=== PATIENT | male | born 1955 | race Caucasian/White ===

== ENCOUNTER 2017-08-29 05:47 | Inpatient (IN) | payer OTHER ==
[2017-08-21 14:06] VITALS: BMI 30.9
[~2017-08-29 05:47] MED LIST: CELECOXIB 200 MG CAPSULE PO ONE; GABAPENTIN 300 MG CAPSULE (FP) PO ONE; PANTOPRAZOLE 40 MG TABLET (FP) PO ONE
[2017-08-29] MEDS ORDERED: PANTOPRAZOLE 40 MG TABLET (FP) ONE (06:59)
[2017-08-29] MEDS ORDERED: GABAPENTIN 300 MG CAPSULE (FP) ONE (06:59)
[2017-08-29] MEDS ORDERED: CELECOXIB 200 MG CAPSULE ONE (07:00)
[2017-08-29] MEDS ORDERED: TRANEXAMIC ACID 1000 MG/10 ML VIAL ONE (07:16)
--- NOTE | 2017-08-29 07:16 | HP ---
Admitting History and Physical - Admission Chief Complaint: left hip osteoarthritis x years History of Present Illness: 61 year old male presents regarding his left hip. Longstanding history of left hip osteoarthritis. Patient complains of pain, limited ROM, difficulty ambulating and difficulty with ADLs such as putting on his socks and shoes. Patient has failed conservative treatment measures including PO medication, activity modification, injections and exercise program. Patient roderick like to proceed with surgical intervention, left total hip arthroplasty, MAKOplasty. History Source: Patient - Past Medical History Gastrointestinal: Yes: GERD Musculoskeletal: Yes: Osteoarthritis - Past Surgical History Additional Past Surgical History: See written history & physical. - Smoking History Smoking history: Never smoked Have you smoked in the past 12 months: No - Alcohol/Substance Use Hx Alcohol Use: No Home Medications - Allergies Allergies/Adverse Reactions: Allergies Allergy/AdvReac Type Severity Reaction Status Date / Time No Known Drug Allergies Allergy Verified 08/21/17 14:02 - Home Medications Home Medications: Ambulatory Orders Omeprazole 10 mg PO ASDIR PRN 05/30/16 Aspirin [ASA -] 81 mg PO DAILY 08/21/17 Review of Systems - Review of Systems Musculoskeletal: reports: Decreased ROM (left hip), Joint Pain (left hip) Physical Examination Constitutional: Yes: Well Nourished, No Distress Eyes: Yes: Conjunctiva Clear HENT: Yes: Atraumatic, Normocephalic Neck: Yes: Supple Cardiovascular: Yes: Regular Rate and Rhythm Respiratory: Yes: Regular Gastrointestinal: Yes: Soft ...Rectal Exam: Yes: Deferred Musculoskeletal: Yes: Joint Stiffness (left hip) Assessment/Plan 61 year old male presents regarding his left hip. Longstanding history of left hip osteoarthritis. Patient complains of pain, limited ROM, difficulty ambulating and difficulty with ADLs such as putting on his socks and shoes. Patient has failed conservative treatment measures including PO medication, activity modification, injections and exercise program. Patient roderick like to proceed with surgical intervention, left total hip arthroplasty, MAKOplasty. Pros, cons, risks, benefits and alternatives of a left total hip arthroplasty, MAKOplasty Were discussed with the patient at length. Patient confirms his understanding and consents to proceed with a left total hip arthroplasty, MAKOplasty.
[2017-08-29] MEDS ORDERED: VANCOMYCIN 1,000 MG VIAL (RESTRICTED TO ID ONLY) ONE (07:17)
[2017-08-29] MEDS ORDERED: ceFAZolin SODIUM 1 GM VIAL ONE (07:17)
[2017-08-29] MEDS ORDERED: ROPIVICAINE 0.2%/MORPH PF/KETOROLAC - 51ML DISP.SYRINGE IA ONE ×4 (07:19→11:34)
[2017-08-29] MEDS ORDERED: MIDAZOLAM HCL 2 MG/2 ML SINGLE DOSE VIAL ONE (07:21)
[2017-08-29] MEDS ORDERED: LIDOCAINE 1% P/F 10 MG/ML VIAL ONE (07:21)
[2017-08-29] MEDS ORDERED: DEXAMETHASONE SOD PHOSPHATE/PF 10 MG/ML SDV ONE (07:21)
[2017-08-29] MEDS ORDERED: BUPIVACAINE HCL/PF (5 MG/ML) 30 ML VIAL IJ ONE (07:22)
[2017-08-29] MEDS ORDERED: TRANEXAMIC ACID 1000 MG/10 ML VIAL IVPUSH ONE ×3 (08:00→11:34)
[2017-08-29] MEDS ORDERED: CEFAZOLIN 2 GM in DEXTROSE 5%-WATER - 50 ML IVPB ONE (08:00)
[2017-08-29] MEDS ORDERED: VANCOMYCIN 1,000 MG VIAL (RESTRICTED TO ID ONLY) IVPB ONE ×2 (10:10→11:34)
[2017-08-29] MEDS ORDERED: ONDANSETRON 4 MG/2 ML VIAL IVPUSH PRN ×2 (11:11→13:00)
[2017-08-29] MEDS ORDERED: oxyCODONE HCL 5 MG TABLET PO PRN ×3 (11:11→14:08)
--- NOTE | 2017-08-29 12:59 | OP ---
Operative Note - Note: Operative Date: 08/29/17 Pre-Operative Diagnosis: Left hip OA Operation: Left MAKOplasty LEO Post-Operative Diagnosis: Same as Pre-op Surgeon: Ifeanyi South Rebrander: Yeni Fajardo Anesthesia: Spinal Estimated Blood Loss (mls): 300
[2017-08-29] MEDS ORDERED: LACTATED RINGERS SOLUTION 1,000 ML IV SCH (13:00)
[2017-08-29] MEDS ORDERED: MAGNESIUM HYDROX 2400MG/30ML ORAL SUSPENSION 30 ML CUP PO PRN (13:00)
[2017-08-29] MEDS ORDERED: MAG HYDROX/AL HYDROX/SIMETH 30 ML UNIT-DOSE CUP PO PRN (13:00)
[2017-08-29] MEDS ORDERED: ACETAMINOPHEN 1000 MG/100 ML VIAL (NON FORMULARY) IVPB ONE ×2 (13:03→13:15)
[2017-08-29] MEDS ORDERED: oxyCODONE HCL 10 MG SUSTAINED ACTING TABLET PO ONE ×2 (13:03→13:30)
--- NOTE | 2017-08-29 13:12 | SPEC ---
DATE OF OPERATION: 08/29/2017 PREOPERATIVE DIAGNOSIS: Left hip osteoarthritis. POSTOPERATIVE DIAGNOSIS: Left hip osteoarthritis. PROCEDURE: Left total hip replacement with MAKOplasty robotic navigation. ATTENDING: Griselda Macdonald MD DEPOSIT REFUND CLERK: RICKY Jacob ANESTHESIA: Spinal plus sedation. ESTIMATED BLOOD LOSS: 300 mL. COMPLICATIONS: None. SPECIMENS: Resected bone was sent for pathology analysis. DISPOSITION: The patient was transferred to the PACU in stable condition. IMPLANTS USED: [place] Accolade II size 6 femoral component, Jossue Tritanum 52-mm acetabular component with 25-mm and 20-mm acetabular screws, MDM bipolar head ball and liner with inner 22+3-mm head ball. INDICATIONS: This is a 61-year-old male who presents to the office complaining of severe bilateral hip pain. The left is more painful than the right. He was seen and examined by Dr. Macdonald and diagnosed with severe left hip osteoarthritis. The patient was initially treated with nonoperative management such as medications, injections, and physical therapy but failed conservative treatment. He was then indicated for a left total hip replacement with MAKOplasty robotic navigation. The risks, benefits, and alternatives to the surgery were explained to the patient in great detail, and he elected to proceed with the surgery. DESCRIPTION OF PROCEDURE: On the day of surgery, the patient was taken to the operating room and placed on the OR table. Spinal anesthesia was administered by the anesthesiologist. The patient was then positioned in the lateral decubitus position on the table and all bony prominences were padded. An axillary roll was placed. The operative hip was then prepped and draped in the usual sterile fashion and intravenous antibiotics were given for infection prophylaxis. A surgical time-out was then performed with the team, and the patients identity, procedure, side, availability of implants, and the administration of antibiotics were confirmed. An approximately 15-cm longitudinal incision was made through the skin centered on the greater trochanter of the hip. This dissection was carried down through the subcutaneous tissues to the deep fascia. This fascia was then incised and a Cobra was placed around the inferior femoral neck. Electrocautery was used to reflect the anterior 40% of the gluteus medius and minimus starting at the musculotendinous junction and leaving a cuff for closure. This was reflected to reveal the capsule of the hip joint. An anterior capsulectomy was performed and the femoral head and neck were visualized. Grade 4 changes were noted diffusely throughout the joint. At this point, three small stab incisions were made superior to the main incision along the iliac crest. Three self-drilling Steinmann pins were then placed and the Blurtt pelvic array was attached. Reference points on the limb were then entered into the robotic device and the limb length deficiency, offset, and femoral neck resection level were then calculated by the software. The hip was then dislocated with traction and external rotation. An oscillating saw was used to make the femoral neck cut at the level previously templated, and the femoral head was removed. Attention was then turned to the acetabulum. Retractors were then placed around the acetabulum and the labrum was removed. An acetabular checkpoint pin and the Blurtt software were used to register the contours of the acetabulum. The acetabulum was then reamed in a single stage to the preoperatively templated size using the Blurtt robotic arm. The appropriately sized cup was then impacted and had solid fixation as well as the preset inclination and version of 40 and 20 degrees, respectively. A polyethylene liner was then placed in the cup. Attention was then turned back to the femur, which was externally rotated for improved visualization. A femoral neck elevator was used to present the femoral neck cut, a box osteotome was used to enter the femoral canal, and a canal finder was used to go down the femoral shaft. The Keaton broaches were used sequentially until the optimal scratch fit was achieved. This correlated with the preoperatively templated size. From here, several different offset head and neck configurations were tested until excellent stability and length were obtained. These measurements were quantified using the Blurtt software. All trial components were then removed, the femur was copiously irrigated, and the final components were placed. Leg length and stability were checked again and found to be excellent. After final implants were placed, a 3-minute dilute Betadine lavage was performed. Following this, the wound was irrigated with normal saline via pulsatile lavage, and wound closure was begun. Wound closure was started by repairing the abductor muscles with a no. 2 FiberWire stitch in a Krackow configuration passed through bone tunnels in the greater trochanter and tied over a bony bridge. This repair was then reinforced with a 0 V-Loc 180 barbed suture. Next, no. 1 Polysorb and 0 V-Loc 180 were used to close the fascia. The deep subcutaneous tissue was closed with no. 1 Polysorb sutures, and 2-0 Polysorb was used for the superficial subcutaneous tissue. The skin was closed using both 3-0 V-Loc 90 suture in a running subcuticular fashion and SwiftSet skin adhesive. The Keaton array and pins were removed from the iliac crest and the stab incision sites were irrigated and closed with 4-0 Polysorb sutures and SwiftSet skin adhesive. Once this was completed, a sterile dressing was applied. The patient was then awakened and taken to the PACU in stable condition. GRISELDA MACDONALD M.D. [id number]
[2017-08-29] MEDS ORDERED: KETOROLAC TROMETHAMINE 30 MG/1 ML VIAL IVPUSH ONE (13:28)
[2017-08-29] MEDS ORDERED: traMADol HCL 50 MG TABLET PO ONE (13:30)
[2017-08-29] MEDS: KETOROLAC TROMETHAMINE 30 MG/1 ML VIAL IVPUSH SCH ×2 (14:00→19:46)
[2017-08-29] MEDS: traMADol HCL 50 MG TABLET PO SCH ×2 (15:10→19:46)
[2017-08-29] MEDS: oxyCODONE HCL 5 MG TABLET PO PRN ×2 (16:10→22:12)
[2017-08-29] MEDS: CEFAZOLIN 2 GM/D5W 2 GM/50 ML ML IVPB SCH ×2 (16:20→23:52)
[2017-08-29] MEDS: ACETAMINOPHEN 325 MG TABLET (FP) PO SCH (19:45)
[2017-08-29] MEDS ORDERED: DEXAMETHASONE SOD PHOSPHATE 10 MG/1 ML VIAL IVPB ONE (20:00)
[2017-08-29] MEDS: SENNOSIDES/DOCUSATE COMBO (SENNA PLUS) TABLET (UD) PO SCH (21:47)
[2017-08-29] MEDS: ASCORBIC ACID 500 MG TABLET (FP) PO SCH (21:48)
[2017-08-29] MEDS: oxyCODONE HCL 10 MG SUSTAINED ACTING TABLET PO SCH (21:48)
[2017-08-29] MEDS: GABAPENTIN 300 MG CAPSULE (FP) PO SCH (21:48)
[2017-08-29] MEDS: CELECOXIB 200 MG CAPSULE PO SCH (21:48)
[2017-08-30] MEDS: oxyCODONE HCL 5 MG TABLET PO PRN ×3 (01:00→15:03)
[2017-08-30] MEDS: ACETAMINOPHEN 325 MG TABLET (FP) PO SCH ×4 (01:01→20:25)
[2017-08-30] MEDS: traMADol HCL 50 MG TABLET PO SCH ×4 (01:01→20:25)
[2017-08-30] MEDS: KETOROLAC TROMETHAMINE 30 MG/1 ML VIAL IVPUSH SCH ×2 (01:02→08:31)
[2017-08-30] MEDS ORDERED: diphenhydrAMINE HCL 25 MG CAPSULE (FP) PO ONE (06:37)
[2017-08-30] MEDS: LACTATED RINGERS SOLUTION 1,000 ML IV SCH ×2 (07:51→12:43)
--- NOTE | 2017-08-30 08:13 | SURG ---
Surgery Insurance Processing Clerk Note Insurance Processing Clerk: Yeni Fajardo PA-C Date of Service: 08/29/17 Diagnosis: Left hip OA Procedure: Left MAKOplasty LEO I was present for the entirety of the operative procedure. For further detail, please refer to operative report. Visit type - Case Type Case Type: Scheduled Admission - Emergency Emergency Visit: No - New patient This patient is new to me today: Yes Date on this admission: 08/29/17
[2017-08-30] MEDS: ASPIRIN 325 MG TABLET PO SCH (08:33)
[2017-08-30 08:40] LABS: HEMOGLOBIN 13.5 GM/dl (11.7-16.9); MCH 27.5 pg (25.7-33.7); MEAN CELL VOLUME 83.4 fl (80-96); MEAN PLT VOLUME 10.1 fl (7.5-11.1); PLATELET COUNT 224 K/MM3 (134-434); RBC 4.91 M/mm3 (4.00-5.60); RDW 13.3 % (11.9-15.9); WHITE BLOOD COUNT 17.3 K/mm3 (4.0-10.8)
--- NOTE | 2017-08-30 09:11 | PN ---
Progress Note, Physician Chief Complaint: Pt. pain controlled, no anesthesia complaints. - Current Medication List Current Medications: Active Medications Acetaminophen (Tylenol -) 650 mg PO Q6H [facility] Stop: 09/01/17 19:59 Last Admin: 08/30/17 08:33 Dose: 650 mg Al Hydroxide/Mg Hydroxide (Mylanta Oral Suspension -) 30 ml PO Q4H PRN PRN Reason: DYSPEPSIA Last Admin: 08/30/17 00:02 Dose: 30 ml Ascorbic Acid (Vitamin C -) 500 mg PO BID [facility] Last Admin: 08/29/17 21:48 Dose: 500 mg Aspirin (Asa -) 325 mg PO DAILY@0800 [facility] Last Admin: 08/30/17 08:33 Dose: 325 mg Celecoxib (Celebrex -) 200 mg PO BID [facility] Last Admin: 08/29/17 21:48 Dose: 200 mg Gabapentin (Neurontin -) 300 mg PO BID [facility] Stop: 09/01/17 21:59 Last Admin: 08/29/17 21:48 Dose: 300 mg Lactated Ringer's (Lactated Ringers Solution) 1,000 mls @ 125 mls/hr IV ASDIR [facility] Last Admin: 08/30/17 07:51 Dose: Not Given Magnesium Hydroxide (Milk Of Magnesia -) 30 ml PO PRN PRN PRN Reason: CONSTIPATION Multivitamins/Minerals/Vitamin C (Tab-A-Vit -) 1 tab PO DAILY [facility] Ondansetron HCl (Zofran Injection) 4 mg IVPUSH Q6H PRN PRN Reason: NAUSEA Oxycodone HCl (Oxycontin -) 10 mg PO BID [facility] Stop: 09/01/17 11:12 Last Admin: 08/29/17 21:48 Dose: 10 mg Oxycodone HCl (Roxicodone -) 5 mg PO Q3H PRN PRN Reason: PAIN LEVEL 1-5 Oxycodone HCl (Roxicodone -) 10 mg PO Q3H PRN PRN Reason: PAIN LEVEL 6-10 Last Admin: 08/30/17 06:53 Dose: 10 mg Pantoprazole Sodium (Protonix -) 40 mg PO DAILY [facility] Senna/Docusate Sodium (Pericolace -) 2 tablet PO BID [facility] Last Admin: 08/29/17 21:47 Dose: 2 tablet Tramadol HCl (Ultram -) 50 mg PO Q6H [facility] Last Admin: 08/30/17 08:34 Dose: 50 mg - Objective Vital Signs: Vital Signs Temperature 98.4 F 08/30/17 06:00 Pulse Rate 72 08/30/17 06:00 Respiratory Rate 18 08/30/17 06:00 Blood Pressure 130/82 08/30/17 06:00 O2 Sat by Pulse Oximetry (%) 96 08/30/17 08:21 Constitutional: Yes: Well Nourished, No Distress, Calm Musculoskeletal: Yes: WNL Neurological: Yes: WNL, Alert, Oriented ...Motor Strength: WNL Labs: CBC, BMP 08/30/17 07:15 Assessment/Plan POD#1 s/p Left Total hip replacement under spinal with paravertebral block. Doing well D/C from anesthesia care.
[2017-08-30 09:16] LABS: ANION GAP 6 (8-16); BLOOD UREA NITROGEN 32 mg/dl (7-18); CALCIUM 8.7 mg/dl (8.4-10.2); CHLORIDE 102 mmol/L (98-107); CO2 24 mmol/L (22-28); CREATININE 1.2 mg/dl (0.6-1.3); GLUCOSE,RANDOM 170 mg/dl (74-106); POTASSIUM 4.5 mmol/L (3.5-5.1); SODIUM 132 mmol/L (136-145)
[2017-08-30] MEDS: ASCORBIC ACID 500 MG TABLET (FP) PO SCH ×2 (09:35→21:53)
[2017-08-30] MEDS: CELECOXIB 200 MG CAPSULE PO SCH ×2 (09:35→21:53)
[2017-08-30] MEDS: GABAPENTIN 300 MG CAPSULE (FP) PO SCH ×2 (09:36→21:53)
[2017-08-30] MEDS: SENNOSIDES/DOCUSATE COMBO (SENNA PLUS) TABLET (UD) PO SCH ×2 (09:36→21:53)
[2017-08-30] MEDS: MULTIVITAMINS (DAILY MVI) TABLET (FP) PO SCH (09:37)
[2017-08-30] MEDS: PANTOPRAZOLE 40 MG TABLET (FP) PO SCH (09:37)
[2017-08-30] MEDS: oxyCODONE HCL 10 MG SUSTAINED ACTING TABLET PO SCH ×2 (09:38→21:53)
--- NOTE | 2017-08-30 23:47 | PN ---
Progress Note (short form) - Note Progress Note: Pt seen and examined. Doing well. Walked 800+ feet. AVSS Selected Entries 08/30/17 08/30/17 08/30/17 08:21 14:10 21:00 Temperature 98.7 F Respiratory 18 18 Rate Blood Pressure 132/81 O2 Sat by Pulse 96 Oximetry (%) Fraction of 94 Inspired Oxygen (FIO2) Laboratory Tests 08/30/17 08/30/17 07:15 07:15 WBC 17.3 H D Hgb 13.5 Hct 41.0 Plt Count 224 Sodium 132 L Potassium 4.5 Chloride 102 Carbon Dioxide 24 Anion Gap 6 L BUN 32 H D Creatinine 1.2 Random Glucose 170 H D Calcium 8.7 Gen: NAD LLE: c/d/i, NVID A/P 61yo male POD#1 s/p L LEO 1. Doing well 2. D/C in AM after PT. F/U in office in 10-14 days.
--- NOTE | 2017-08-30 23:48 | DS ---
Physical Examination Vital Signs: Vital Signs Temperature 98.7 F 08/30/17 14:10 Pulse Rate 63 08/30/17 14:10 Respiratory Rate 18 08/30/17 21:05 Blood Pressure 132/81 08/30/17 14:10 O2 Sat by Pulse Oximetry (%) 96 08/30/17 08:21 Labs: CBC, BMP 08/30/17 07:15 08/30/17 07:15 Discharge Summary Reason For Visit: OSTEOARTHRITIS LEFT HIP Current Active Problems Osteoarthritis of left hip (Acute) Procedures: Principal: L LEO Hospital Course: Admitted for elective surgery. Procedure performed without complications. Pt received postoperative antibiotic prophylaxis and DVT ppx. Ambulated with physical therapy. Stable for discharge home with outpatient followup. Condition: Stable - Instructions Diet, Activity, Other Instructions: Dr South - Hip Replacement Instructions Keep the Aquacel dressing on until removed by Dr. South in 10-14 days - it is antibacterial and waterproof and you can shower with it on. Call the office for a follow-up appointment with Dr. South in 10-14 days. [phone] Take one Aspirin 325mg daily for 6 weeks to prevent blood clots in your legs. Take one Pantoprazole 40mg daily for 6 weeks to protect against heartburn and ulcers. Take Celebrex 200mg twice daily for 30 days to reduce swelling and inflammation. Take Cephalexin (antibiotic) 3x/day for 10 days to help prevent skin infection. Take a multivitamin, stool softener, and extra vitamin C supplement daily. For pain: *Mild pain (1-3/10): Take 1 Tramadol tablet every 4 hours as needed. Moderate pain (4-6/10): Take 1 Tramadol tablet and 1 Percocet tablet every 4 hours as needed. Severe pain (7-10/10): Take 1 Tramadol tablet and 2 Percocet tablets every 4 hours as needed. Activity: You can put as much weight on the operative leg as you want. For the first 6 weeks, all you need to do is walk around the house, go up/down stairs, and sit down/get up. After 6 weeks when everything is healed (and bone has grown into the implant) you will be sent for more intensive outpatient physical therapy. Always use a walker or cane for balance and to prevent falls. Expect to see swelling/bruising from the hip all the way down to your toes. Wear the compression stocking on the left side during the day to minimize how much swelling there is in your foot/ankle. Don't wear the stocking at night. You don't have to wear a stocking on the right side. Disposition: VNS/HOME HEALTH CARE - Home Medications Comprehensive Discharge Medication List: Ambulatory Orders Ascorbic Acid [Vitamin C -] 500 mg PO BID tablet 08/30/17 Aspirin [ASA -] 325 mg PO DAILY@0800 tablet 08/30/17 Celecoxib [CeleBREX -] 200 mg PO BID #60 capsule 08/30/17 Cephalexin Monohydrate [Keflex -] 500 mg PO TID #30 capsule 08/30/17 Multivitamins [Multivit ([facility] Formulary)] 1 tab PO DAILY tab 08/30/17 Oxycodone HCl/Acetaminophen [Percocet 5-325 mg Tablet] 1 - 2 tab PO Q4H PRN #60 tablet MDD 8 08/30/17 Pantoprazole Sodium [Protonix -] 40 mg PO DAILY #40 tablet.ec 08/30/17 Sennosides/Docusate Sodium [Pericolace -] 2 tablet PO BID tablet 08/30/17 traMADol HCL [Ultram -] 50 mg PO Q4H PRN #90 tablet MDD 6 08/30/17
[2017-08-31] MEDS: ACETAMINOPHEN 325 MG TABLET (FP) PO SCH ×2 (01:25→08:47)
[2017-08-31] MEDS: traMADol HCL 50 MG TABLET PO SCH ×2 (01:26→08:47)
[2017-08-31 06:49] VITALS: BP 114/73; PULSE 73; TEMP 98.5
[2017-08-31 08:00] LABS: HEMATOCRIT 34.4 % (35.4-49); HEMOGLOBIN 11.6 GM/dl (11.7-16.9); MCH 28.2 pg (25.7-33.7); MCHC 33.8 g/dl (32.0-35.9); MEAN CELL VOLUME 83.4 fl (80-96); MEAN PLT VOLUME 9.6 fl (7.5-11.1); PLATELET COUNT 185 K/MM3 (134-434); RBC 4.12 M/mm3 (4.00-5.60); RDW 13.5 % (11.9-15.9); WHITE BLOOD COUNT 10.8 K/mm3 (4.0-10.8)
[2017-08-31] MEDS: ASPIRIN 325 MG TABLET PO SCH (08:46)
[2017-08-31] MEDS: MULTIVITAMINS (DAILY MVI) TABLET (FP) PO SCH (09:34)
[2017-08-31] MEDS: SENNOSIDES/DOCUSATE COMBO (SENNA PLUS) TABLET (UD) PO SCH (09:34)
[2017-08-31] MEDS: PANTOPRAZOLE 40 MG TABLET (FP) PO SCH (09:34)
[2017-08-31] MEDS: CELECOXIB 200 MG CAPSULE PO SCH (09:34)
[2017-08-31] MEDS: ASCORBIC ACID 500 MG TABLET (FP) PO SCH (09:34)
[2017-08-31] MEDS: oxyCODONE HCL 10 MG SUSTAINED ACTING TABLET PO SCH (09:35)
[2017-08-31] MEDS: GABAPENTIN 300 MG CAPSULE (FP) PO SCH (09:35)
--- NOTE | 2017-09-02 13:52 | PATH ---
Surgical Pathology Report Patient Name: CHIDI MATHUR Med. Rec. #: [id number] /Age/Gender: 1955 (Age: 61) / M Account: [id number] Location: [facility] MED-SURG Taken: 08/29/2017 Received: 08/29/2017 Reported: 09/02/2017 Physicians: Ifeanyi South M.D. Specimen(s) Received LEFT FEMORAL HEAD Clinical History Osteoarthritis left hip Final Diagnosis BONE, LEFT FEMORAL HEAD, REPLACEMENT: DEGENERATIVE JOINT DISEASE. Electronically Signed Oracio Clements M.D. Gross Description Received in formalin labelled "left femoral head " is 9 x 4.5 x 4.5 cm portion of consistent with a femoral head. The femoral neck is firm and uniform. The articular cartilage is markedly irregular and there is a 3 x 1.5 cm area of eburnation. Bony spurring is noted at the periphery.. Branch Services Manager sections are submitted in one cassette for decalcification. [facility]/08/30/2017 [facility]/08/30/2017
== END 2017-08-31 13:30 | disposition home health service (06) | DRG 470 ==
LOC: FM/S 05:47
PROVIDERS: ADMIT Student in an Organized Health Care Education/Training Program; ATTEND Student in an Organized Health Care Education/Training Program
PROC: 8E0W0CZ Robotic Assisted Procedure of Trunk Region, Open Approach (ICD-10-PCS; 2017-08-29)
PROC: 0SRB0JA Replacement of Left Hip Joint with Synthetic Substitute, Uncemented, Open Approach (ICD-10-PCS; principal; 2017-08-29 09:22)
DX: M16.12 Unilateral primary osteoarthritis, left hip (principal); K21.9 Gastro-esophageal reflux disease without esophagitis
CPT/HCPCS: 36415; 73502-TC-LT-FY; 80048; 85027; 88304-TC; 88311-TC; 94010; 94760; 97116-GP; 97162-GP; J0131; J1100

== ENCOUNTER 2018-09-15 05:46 | Inpatient (IN) | payer OTHER ==
[2018-09-09 09:31] VITALS: BMI 30.5
[~2018-09-15 05:46] MED LIST changes: -CELECOXIB 200 MG CAPSULE PO ONE; -GABAPENTIN 300 MG CAPSULE (FP) PO ONE; +LIDOCAINE 1%/EPI 1:100000 (50 ML MULTI DOSE VIAL) INF ONE; -PANTOPRAZOLE 40 MG TABLET (FP) PO ONE; +methylPREDNISolone ACET (DEPO) 40 MG/1 ML VIAL IM ONE
[2018-09-15] MEDS ORDERED: methylPREDNISolone ACET (DEPO) 40 MG/1 ML VIAL ONE (07:07)
[2018-09-15] MEDS ORDERED: THROMBIN (RECOMBINANT) 5,000 UNIT VIAL TP ONE (07:07)
[2018-09-15] MEDS ORDERED: GUM MASTIC/STORAX/MSAL/ALCOHOL 1 DRP DROPSBTL MC ONE (07:08)
[2018-09-15] MEDS ORDERED: LIDOCAINE 1%/EPI 1:100000 (20 ML MULTI DOSE VIAL) ONE (07:08)
--- NOTE | 2018-09-15 08:03 | HP ---
History & Physical Update - History History: No Change - Physical Physical: No Change - Assessment Assessment: No Change - Plan Plan: No Change
[2018-09-15] MEDS ORDERED: MIDAZOLAM HCL 2 MG/2 ML SINGLE DOSE VIAL ONE ×2 (08:34→09:37)
[2018-09-15] MEDS ORDERED: BUPIVACAINE HCL/PF (5 MG/ML) 30 ML VIAL IJ ONE ×2 (08:34→08:35)
[2018-09-15] MEDS ORDERED: DEXAMETHASONE SOD PHOSPHATE 4 MG/1 ML VIAL ONE (09:10)
[2018-09-15] MEDS ORDERED: ONDANSETRON 4 MG/2 ML VIAL ONE (09:10)
[2018-09-15] MEDS ORDERED: ceFAZolin SODIUM 1 GM VIAL ONE (09:10)
[2018-09-15] MEDS ORDERED: LIDOCAINE 1%/EPI 1:100000 (50 ML MULTI DOSE VIAL) INF ONE (09:23)
[2018-09-15] MEDS ORDERED: GELATIN SPONGE,ABSORBABLE 1 GM PACKET TP ONE (09:35)
[2018-09-15] MEDS ORDERED: THROMBIN (BOVINE) 5,000 UNIT VIAL TP ONE (09:35)
[2018-09-15] MEDS ORDERED: ONDANSETRON 4 MG/2 ML VIAL IVPUSH PRN (11:23)
[2018-09-15] MEDS ORDERED: diazePAM 5 MG TABLET PO PRN (11:23)
[2018-09-15] MEDS ORDERED: ACETAMINOPHEN 1000 MG/100 ML VIAL (NON FORMULARY) IVPB ONE (11:27)
[2018-09-15] MEDS ORDERED: diphenhydrAMINE HCL 25 MG CAPSULE (FP) PO PRN (11:28)
[2018-09-15] MEDS ORDERED: HYDROmorphone HCL 2 MG TABLET PO PRN (11:29)
[2018-09-15] MEDS ORDERED: HYDROmorphone HCL CARPU-JECT 2 MG/1 ML DISP.SYRIN IVPB PRN (11:30)
[2018-09-15] MEDS ORDERED: ACETAMINOPHEN/CAFFEINE/BUTALBITAL 1 TAB ONE (11:33)
[2018-09-15] MEDS: ACETAMINOPHEN/CAFFEINE/BUTALBITAL 1 TAB PO SCH ×3 (11:40→17:55)
--- NOTE | 2018-09-15 11:41 | OP ---
Operative Note - Note: Operative Date: 09/15/18 Pre-Operative Diagnosis: lumbar stenosis, L1-L2 Operation: laminectomy of L1-L2 with repiar of dural tear/primary closure and durgen patch with duraseal Surgeon: Sammy Carrera Parts Counter Specialist: Yeni Fajardo Anesthesiologist/DEPARTMENTAL SECRETARY: Celeste Adame Anesthesia: Spinal Estimated Blood Loss (mls): 20 Fluid Volume Replaced (mls): 500 Operative Report Dictated: Yes
[2018-09-15] MEDS ORDERED: LACTATED RINGERS SOLUTION 1,000 ML IV SCH (11:45)
[2018-09-15] MEDS: KETOROLAC TROMETHAMINE 30 MG/1 ML VIAL IVPUSH SCH ×3 (12:01→17:55)
[2018-09-15] MEDS: traMADol HCL 50 MG TABLET PO SCH ×4 (12:05→23:24)
[2018-09-15] MEDS ORDERED: HYDROmorphone HCL 0.5 MG/0.5 ML SYRINGE ONE (12:24)
--- NOTE | 2018-09-15 14:49 | SURG ---
Surgery Stoker Erector Note Stoker Erector: Yeni Fajardo PA-C Date of Service: 09/15/18 Diagnosis: lumbar stenosis, L1-L2 Procedure: laminectomy of L1-L2 with repiar of dural tear/primary closure and duragen patch with duraseal I was present for the entirety of the operative procedure. For further detail, please refer to operative report. Visit type - Case Type Case Type: Scheduled - Emergency Emergency Visit: No - New patient This patient is new to me today: Yes Date on this admission: 09/15/18
[2018-09-15] MEDS: CEFAZOLIN 1 GM/D5W 1 GRAM/50 ML BAG IVPB SCH (17:55)
[2018-09-15] MEDS ORDERED: ACETAMINOPHEN 325 MG TABLET (FP) PO SCH (18:00)
[2018-09-15] MEDS: diazePAM 2 MG TABLET PO PRN (21:01)
[2018-09-15] MEDS: PANTOPRAZOLE 40 MG TABLET (FP) PO SCH (21:02)
[2018-09-15] MEDS: GABAPENTIN 300 MG CAPSULE (FP) PO SCH (21:02)
[2018-09-15] MEDS: DOCUSATE SODIUM 100 MG CAPSULE (FP) PO SCH (21:02)
[2018-09-16] MEDS: ACETAMINOPHEN/CAFFEINE/BUTALBITAL 1 TAB PO SCH ×5 (00:44→23:52)
[2018-09-16] MEDS: CEFAZOLIN 1 GM/D5W 1 GRAM/50 ML BAG IVPB SCH (00:44)
[2018-09-16] MEDS: DOCUSATE SODIUM 100 MG CAPSULE (FP) PO SCH ×3 (06:36→21:23)
[2018-09-16] MEDS: traMADol HCL 50 MG TABLET PO SCH ×4 (06:36→23:53)
[2018-09-16] MEDS: KETOROLAC TROMETHAMINE 30 MG/1 ML VIAL IVPUSH SCH (06:40)
--- NOTE | 2018-09-16 08:05 | PN ---
Progress Note (short form) - Note Progress Note: POD#1 Pt with throbbing headache when oob to use the restroom. He had nausea and emesis overnight. This am he has no nausea. No leg pain. Vital Signs Period Temp Pulse Resp BP Sys/Pineda Pulse Ox Last 24 Hr 98.3 F-99.0 F 67-76 18-19 100-134/59-88 95-98 GEN: A&0x3, NAD CV: RRR Lungs: CTA b/l Back: Dressing changed this am. Steri-strips in place. No erythema or drainage. No masses or bulges. Neuro: 4/4 dorsi/plantar flexion b/l CBC, BMP 09/16/18 07:10 09/16/18 07:10 A/p: 62 yo male s/p Laminectomy of L1-L2 with durotomy and repair with primary/ duragen and duraseal Bed rest with bathroom priviledges Fiorocet Q6h Pain management with oral pain meds Ultram scheduled and oral dilaudid, PRN IV hydration D/w Dr. Carrera <Yeni Fajardo - Last Filed: 09/16/18 15:18> - Note Progress Note: Patient states that his headaches have decreased He continues to remain on bedrest We will keep him on bedrest for another 24 hours Neurologically he is intact <Sammy Carrera - Last Filed: 09/16/18 17:05>
[2018-09-16 08:12] LABS: BASO % 0.2 % (0-2.0); EOS % 0.1 % (0-4.5); HEMATOCRIT 37.4 % (35.4-49); HEMOGLOBIN 12.5 GM/dl (11.7-16.9); LYMPH % 15.4 % (8-40); MCH 28.4 pg (25.7-33.7); MCHC 33.4 g/dl (32.0-35.9); MEAN CELL VOLUME 84.9 fl (80-96); MEAN PLT VOLUME 9.4 fl (7.5-11.1); MONO % 7.2 % (3.8-10.2); NEUT % 77.1 % (42.8-82.8); PLATELET COUNT 200 K/MM3 (134-434); RBC 4.41 M/mm3 (4.00-5.60); RDW 13.2 % (11.9-15.9)
[2018-09-16 08:32] LABS: ANION GAP 9 MMOL/L (8-16); BLOOD UREA NITROGEN 20 mg/dl (7-18); CALCIUM 8.5 mg/dl (8.5-10); CHLORIDE 104 mmol/L (98-107); CO2 24 mmol/L (21-32); CREATININE 0.9 mg/dl (0.55-1.3); GLUCOSE,RANDOM 123 mg/dl (74-106); SODIUM 137 mmol/L (136-145)
[2018-09-16] MEDS: GABAPENTIN 300 MG CAPSULE (FP) PO SCH ×2 (10:20→21:23)
--- NOTE | 2018-09-16 12:25 | PN ---
Progress Note (short form) - Note Progress Note: ANESTHESIA POSTOP 62 YO FEMALE POD#1 s/p Lumbar Laminectomy, spinal anesthesia with PNB Patient laying comfortably in bed, tolerating PO VSS, Afebrile Continue current care
--- NOTE | 2018-09-16 14:07 | OP ---
DATE OF OPERATION: 09/15/2018 PREOPERATIVE DIAGNOSIS: Spinal stenosis L1-L2. POSTOPERATIVE DIAGNOSIS: Spinal stenosis L1-L2. PROCEDURE PERFORMED: Laminectomy L1-L2. SURGEON: Sammy Carrera MD CELLOPHANE BATH MIXER: RICKY Jacob ESTIMATED BLOOD LOSS: 60 mL INTRAVENOUS FLUIDS: Per Anesthesia. ANESTHESIA: Spinal/TLIP block. COMPLICATIONS: Dural tear repaired with suture and DuraGen patch. DISPOSITION: The patient was brought to the PACU in stable condition. INDICATIONS FOR SURGERY: Patient is a 62-year-old gentleman who has been suffering from pain from his back down his left leg. X-rays were remarkable for spinal stenosis at L1-L2. He had gone through all conservative treatments for this, which included medications, physical therapy, as well as injections. Unfortunately his pain continued to persist despite all of this. At this point, the risks, benefits, and alternatives were discussed and the patient consented to surgery. DESCRIPTION OF PROCEDURE: Patient was brought to the operating room by anesthesia staff. After appropriate patient identification was performed, spinal anesthesia was given. A TLIP block was also given. Patient was able to position himself prone onto the OR table with all areas of bony prominences were well-padded at this time. Two needles were placed into his back to marielos off the L1-L2 segment. X-rays were taken to confirm the site. Needle was removed and 10 mL of lidocaine with epinephrine was injected into his back at this time. His back was prepped and draped in the sterile manner. At this point timeout was completed. An incision was made from the top of L1 down to the bottom of L2. Dissection was carried down to the fascia. The fascia was opened at the time and appropriate retractors were placed in. A spinal needle was placed on the L1 lamina to marielos off the L1-L2 level. X-rays were taken to confirm the correct site. The needle was removed and the intraspinous ligament at L1-L2 was removed. A portion of L1-L2 spinous process was removed. A portion of the L1-L2 lamina were removed. The flavum was identified was removed. A complete decompression was performed such that the L2 nerve root appeared to be well decompressed. While mobilizing the nerve root medially, a dural tear was noted. The dural tear was closed with a 6 -0 Nurolon suture. A DuraGen patch was placed over the dural tear and duraseal was placed over that. The fascia was closed with the No. 1 running suture. It was oversewn. The subcutaneous tissues were closed with 2-0 Vicryl suture. The skin was closed with 3-0 Monocryl suture. Dermabond was applied. Steri-Strips were applied. A sterile dressing was applied. Patient was placed supine on the OR bed and brought to the PACU in stable condition. Emily FLEMING/[id number] MTDD
[2018-09-16] MEDS ORDERED: HYDROmorphone HCL 2 MG TABLET PO PRN (15:34)
[2018-09-16] MEDS: PANTOPRAZOLE 40 MG TABLET (FP) PO SCH (21:23)
[2018-09-17] MEDS: ACETAMINOPHEN/CAFFEINE/BUTALBITAL 1 TAB PO SCH ×3 (05:58→16:53)
[2018-09-17] MEDS: DOCUSATE SODIUM 100 MG CAPSULE (FP) PO SCH ×2 (05:58→15:00)
[2018-09-17] MEDS: traMADol HCL 50 MG TABLET PO SCH ×2 (05:59→12:18)
--- NOTE | 2018-09-17 07:25 | DS ---
"Physical Exam: SUBJECTIVE: POD #2 laminectomy of L1-L2 with repair of dural tear/primary closure and durgen patch with duraseal. Patient seen and examined at bedside. He states that he had a great sleep last night and is feeling much better. He Denies any H /A, blurred vision, fever, chills, n/v or CP. He is tolerating his regular diet and voiding without limitation. OBJECTIVE: Vital Signs Period Temp Pulse Resp BP Sys/Pineda Pulse Ox Last 24 Hr 98.3 F-99.9 F 67-80 18-19 100-135/59-88 94-98 PHYSICAL EXAM GENERAL: The patient is awake, alert, and fully oriented, in no acute distress. HEAD: Normal with no signs of trauma. EYES: sclera anicteric, conjunctiva clear. NECK: Trachea midline, LUNGS: no auditory wheezes, no crackles, no accessory muscle use. Lumbar spine: Incision c/d/i with surrounding tissue intact and no bulging or sign of d/c or collection, no tracking erythema, steri strips in place. EXTREMITIES: B/L LE 2+ pulses, warm, well-perfused, no edema, no calf tenderness and 5/5 dorsi/plantar flexion with -SLR. NEUROLOGICAL: Cranial nerves II through XII grossly intact. Normal speech, gait not observed. PSYCH: Normal mood, normal affect. SKIN: Warm, dry, normal turgor, no rashes or lesions noted. LABS Laboratory Results - last 24 hr 09/16/18 09/16/18 07:10 07:10 WBC 12.0 H RBC 4.41 Hgb 12.5 Hct 37.4 MCV 84.9 MCH 28.4 MCHC 33.4 RDW 13.2 Plt Count 200 MPV 9.4 Absolute Neuts (auto) 9.3 Neutrophils % 77.1 Lymphocytes % 15.4 Monocytes % 7.2 Eosinophils % 0.1 Basophils % 0.2 Sodium 137 Potassium 4.0 Chloride 104 Carbon Dioxide 24 Anion Gap 9 BUN 20 H Creatinine 0.9 Creat Clearance w eGFR 85.50 Random Glucose 123 H Calcium 8.5 HOSPITAL COURSE: Date of Admission:09/16/18 The patient was admitted to the Med-Surg Unit after an elective repair of their lumbar stenosis, L1-L2. Now s/p laminectomy of L1-L2 with repiar of dural tear /primary closure and durgen patch with duraseal The day of surgery,the patient was placed in strict bedrest. Narcotic and non- narcotic pain management control was achieved with an oral and IV approach. POD #1, the surgical drain was removed fully intact and without incident and the patient remained on bedrest with bathroom privileges only. Patient complained of headache which improved overnight POD#1 with ice packs placed on his head. POD#2 the headache resolved fully and the patient denies any other symptoms. Anisha-operative IV ABX were administered. DVT prophylaxis was achieved with SCDs. No services were recommended upon discharge. Narcotic scripts and or muscle relaxants were checked with [place] [employer]AFF[employer] CLERK prior to escibe. The patient was given very specific discharge instructions with additional instructions regarding his dural repair which he expressed understanding. The discharge instructions and an oral pain management plan were reviewed with the patient. All questions answered. Above plan discussed with Dr. Carrera and agreed. Date of Discharge: 09/17/18 Minutes to complete discharge: 25 Discharge Summary Reason For Visit: SPINAL STENOSIS Condition: Good - Instructions Diet, Activity, Other Instructions: Post Operative Instructions - Dr Carrera Diet: You may resume your regular diet. We recommend eating plenty of fiber rich foods to prevent constipation, which can be caused by taking narcotic pain medications. You may also use a stool softener such as DulcoEase. We recommend drinking plenty of water unless you are on fluid restrictions for another medical condition. If you are a diabetic, make sure to keep your glucose well controlled as elevated glucose levels promote infection. Medications: You may resume your previous medications unless otherwise instructed by your surgeon, primary care doctor or wic site coordinator. You have been prescribed a Narcotic pain medication. Driving or drinking alcohol is PROHIBITED while taking narcotic pain medication, as is operating any heavy machinery. Activity: DO NOT lift anything over 5 pounds, or bend or twist at the waist. Do not squat down as this will increase pressure in your spine. DO walk as much as tolerated. You may go up and down stairs, but slowly. No running. Use assistive devices (walker, cane) until you feel safe to walk independently without them. *DO NOT sit longer than 20 - 30 minutes. You may increase the time as you become more comfortable. *DO NOT sit in low chairs. Your knees should always be lower than your hips. *You should NOT drive until seen in the office for your first post- operative visit. You may be a passenger for a short time (20 - 30 minutes) until you are able to tolerate longer distances. No sexual activity until discussed with your spine surgeon. General recommendations: If sitting, use only a straight back chair to ensure proper support not to exceed a half hour at a time. Lie only on a firm mattress, no couches or recliner chairs. You may lie on your back or side, but not on your abdomen. Absolutely no bending, stooping, pushing, lifting or straining. Avoid housework, especially vacuuming and sweeping. OK to cook, as long as you are not lifting anything heavier than 5 pounds. Learn proper body mechanics to maintain a neutral spine position. Increasing pain is a red flag telling you to rest. DO NOT: Engage in strenuous activity for at least 12 weeks after surgery. Take stool softeners and/or laxatives as needed to prevent constipation which is a side effect of narcotic pain medications to avoid straining with a bowel movement. Wound Care: Keep area clean and dry. May remove dressing in two (2) days and replace with clean gauze and occlusive dressing such as a tegaderm. NO BATHS. You may shower starting two (2) days after your surgery. When showering, leave the occlusive(plastic) dressing in place and change if it appears wet. Avoid direct water stream onto your incision. General Recommendations: If sitting, use only a straight back chair to ensure proper support, not to exceed a half hour at a time. Lie only on a firm mattress, no couches or recliner chairs. You may lie on your back or side, but not on your abdomen. * Absolutely no bending, stooping, pushing, lifting or straining. * Avoid housework, especially vacuuming or sweeping. * OK to cook, as long as you are not lifting anything heavier than 5 pounds. * Use proper body mechanics to maintain a neutral spine position. * Increasing pain is a red flag telling you to rest. Call your surgeon or report to the ED if you develop: Fevers over 101.5 Chest pain, trouble breathing, calf pain Drainage from the incision (yellow/green, foul smelling) Headaches which feel worse when sitting up and better when lying down, dizziness/imbalance, nausea and vomiting, changes in hearing, sensitivity to light or sound, pain between the shoulder blades. Follow-up Call surgeon's office to schedule your follow-up appointment in two weeks. Referred to following clinics/specialists for follow-up care: [facility] [place], [address] [place] [address] [phone] This report was requested by: Yeni Fajardo | Reference #: [id number] Disposition: HOME - Home Medications Comprehensive Discharge Medication List: Ambulatory Orders Gabapentin 600 mg PO BID 09/09/18 Naproxen Sodium [Aleve] 220 mg PO ASDIR PRN 09/09/18 Pantoprazole Sodium [Protonix -] 40 mg PO HS 09/15/18 Problem List - Problems (1) Lumbar stenosis Assessment/Plan: POD# 2 laminectomy of L1-L2 with repiar of dural tear/primary closure and durgen patch with durasea. No headaches POD#2. 1) d/c home with activity restriction as outlined in d/c instructions 2) encourage IS 3) no heavy lifting or carrying 4) f/u with Dr Carrera as out patient. Code(s): M48.061 - SPINAL STENOSIS, LUMBAR REGION WITHOUT NEUROGENIC ANNIE This patient is new to me today: Yes Date on this admission: 09/17/18 Emergency Visit: No Critical Care patient: No - Discharge Referral Referred to [facility] Med [facility].C[facility] No"
[2018-09-17] MEDS: LACTATED RINGERS SOLUTION 1,000 ML IV SCH ×2 (09:39→10:20)
[2018-09-17] MEDS: GABAPENTIN 300 MG CAPSULE (FP) PO SCH (09:40)
[2018-09-17] MEDS: diazePAM 2 MG TABLET PO PRN (09:58)
[2018-09-17 14:57] VITALS: BP 117/71; PULSE 64; TEMP 100
== END 2018-09-17 18:01 | disposition home or self-care (01) | DRG 519 ==
LOC: FASU 05:46 → FASUSAT 05:46 → FM/S 11:58 → UNDOADMIN 11:58 → FASUSAT 15:16 → FM/S 15:16
PROVIDERS: ADMIT Orthopaedic Surgery Orthopaedic Surgery of the Spine; ATTEND Orthopaedic Surgery Orthopaedic Surgery of the Spine
PROC: 00UT0KZ Supplement Spinal Meninges with Nonautologous Tissue Substitute, Open Approach (ICD-10-PCS; 2018-09-15)
PROC: 00QT0ZZ Repair Spinal Meninges, Open Approach (ICD-10-PCS; 2018-09-15)
PROC: 01NB0ZZ Release Lumbar Nerve, Open Approach (ICD-10-PCS; principal; 2018-09-15 08:15)
DX: M48.061 Spinal stenosis, lumbar region without neurogenic claudication (principal); G97.41 Accidental puncture or laceration of dura during a procedure; Y84.8 Other medical procedures as the cause of abnormal reaction of the patient, or of later complication, without mention of misadventure at the time of the procedure; K21.9 Gastro-esophageal reflux disease without esophagitis
CPT/HCPCS: 36415; 72100-TC-FY; 80048; 85025; 94760